=== PATIENT | female | born 1995 | race Caucasian/White ===

== ENCOUNTER 2016-04-13 00:39 | Emergency (ER) | payer OTHER, BC ==
[~2016-04-13] VITALS: Ht 162.6 cm; Wt 120.6 kg
[~2016-04-13 00:39] MED LIST: DIPH25CA65 PO; MULT-580 PO
[2016-04-13 00:40] VITALS: TEMP 37.1; Ht 162.6 cm; Wt 120.6 kg
[2016-04-13 01:28] VITALS: BP 124/88; PULSE 89; O2SAT 98
--- NOTE | 2016-04-13 01:38 | EMERGENCY ROOM VISIT NOTE ---
ED Visit Note First contact with patient: 00:46 CHIEF COMPLAINT: Body Fluid exposure HPI: This 20 yo presents to the Emergency Department for evaluation of a body fluid exposure left middle finger. Patient was stuck by a hypodermic insulin needle and giving insulin to the patient's in the arm. The wound has already been cleansed. Bleeding is controlled. They deny numbness, tingling, or loss of motion. Source patient is known. History of the source patient is not known at this time. Patient works at [employer] and this morning the source patient will be tested for HIV. They have had the hepatitis B. vaccination. They believe their tetanus is up-to-date. Pain is 0/10. Patient is also requesting a test. ALLERGIES: Lavender oil MEDICATIONS: None PMH: None SOCIAL HISTORY: No drug use Physical Exam: VITALS: Nursing notes reviewed and vitals are stable. GENERAL: Pleasant female, in no acute distress, well developed, well nourished. SKIN: Warm and dry with good turgor. no abrasions. There is a solitary puncture lisa present at the left middle finger. Bleeding is controlled. No edema. Capillary refill is 2+. MUSCULOSKELETAL: Patient has full active range of motion of the finger. Normal strength. NEURO: Gross sensation is intact across the finger. ED COURSE: I examined the patient. Option of HIV, hepatitis C, and hepatitis B testing was discussed with the patient. The risks, benefits, purpose, and limitations of the tests were explained to the patient and all of their questions were answered. They elected to proceed. I did perform pretest counseling and the appropriate consent forms were signed. Patient was given information on prevention of exposure and transmission as well as hospital confidentiality. Blood exposure handout was provided. The patient's blood was drawn. Risks and benefits of HIV prophylaxis were discussed with the patient. The patient elected to no HIV prophylaxis at this time. They will follow-up with their employee health. Wound care instructions were provided. The patient was discharged in stable condition. Impression: Body fluid exposure, request test Plan: As below Problem List Medical Problems: (1) History of treatment for tuberculosis Status: Chronic Allergies Coded Allergies: Lavender Oil (Verified Allergy, Unknown, cAUSES " A LUMP " IN THE BACK OF THROAT, 01/12/15) Vital Signs Date Time Temp Pulse Resp B/P Pulse Ox O2 Delivery O2 Flow Rate FiO2 04/13/16 01:28 89 18 124/88 98 04/13/16 00:40 37.1 81 18 118/77 97 Room Air Laboratory Results Test 04/13/16 00:54 04/13/16 01:15 Departure Information Impression Primary Impression: Needlestick injury of finger of left hand Additional Impression: test negative Dispostion Home / Self-Care Condition GOOD Referrals No Doctor, Assigned Forms WORK / SCHOOL INSTRUCTIONS, HOME CARE DOCUMENTATION FORM, IMPORTANT VISIT INFORMATION Patient Instructions Cool Other Sharps Precautions, On License Of [facility] Additional Instructions Antibiotic ointment and bandage to the areas until healed. Follow up with family doctor or return for any signs of infection (increasing redness, swelling , drainage, or fever). Keep covered when in sun until fully healed then SPF 50 or higher until scar healed. Follow up with your occupational health for further workup for your needlestick tonight. Problem Qualifiers
[2016-04-13 02:20] LABS: HEPATITIS B AB NEG
== END 2016-04-13 01:29 | disposition home or self-care (01) ==
LOC: C.EDB 00:40
DX: S60.943A Unspecified superficial injury of left middle finger, initial encounter (principal); W46.0XXA Contact with hypodermic needle, initial encounter; Y93.F9 Activity, other caregiving; Y99.0 Civilian activity done for income or pay; Y92.129 Unspecified place in nursing home as the place of occurrence of the external cause; Z77.21 Contact with and (suspected) exposure to potentially hazardous body fluids; Z32.02 Encounter for pregnancy test, result negative

== ENCOUNTER → 2016-12-28 | Outpatient (CLI) | payer BC | END | disposition home or self-care (01) | LOC: C.PAPS 09:19 | PROVIDERS: ATTEND Physician Assistant | DX: Z01.419 Encounter for gynecological examination (general) (routine) without abnormal findings (principal) ==

== ENCOUNTER → 2016-12-28 | Outpatient (CLI) | payer BC ==
[2016-12-31 02:22] LABS: CHLAMYDIA TRACH RNA*** NOT DETECTED (NOT DETECTED); GC (NEIS GONORRHOEAE)RNA** NOT DETECTED (NOT DETECTED)
== END | disposition home or self-care (01) ==
LOC: C.LABSPEC 17:32
PROVIDERS: ATTEND Physician Assistant
DX: Z01.419 Encounter for gynecological examination (general) (routine) without abnormal findings (principal)

== ENCOUNTER 2017-05-06 21:07 | Emergency (ER) | payer BC ==
[~2017-05-06] VITALS: Ht 162.6 cm; Wt 124.5 kg
[2017-05-06 21:10] VITALS: TEMP 36.5; Ht 162.6 cm; Wt 124.5 kg
[2017-05-06] MEDS ORDERED: IBUP-1050 PO (21:25)
[2017-05-06] MEDS ORDERED: ETON1IMP2 IM (21:25)
[2017-05-06] MEDS ORDERED: ONDANSETRON INJ 2 MG/ML 2 ML VIAL IV STA (21:41)
[2017-05-06] MEDS ORDERED: MoRPHine SULFATE 4 MG/ML 1 ML CARP\\VIAL IV STA (21:41)
[2017-05-06] MEDS ORDERED: SODIUM CHLORIDE 0.9% 1000ML 1,000 ML IV STA (21:41)
--- NOTE | 2017-05-06 21:42 | EMERGENCY ROOM VISIT NOTE ---
History Report prepared by Landen: Dillan Cleary Under the Supervision of: Dr. Chadd Mooney M.D. First contact with patient: 21:17 Chief Complaint: ABDOMINAL PAIN Stated Complaint: PAIN IN LOWER ABDOMEN, FEELS LIKE A HORRIBLE CYCLE Nursing Triage Summary: Pt reports lower abd pain, nausea that started 1 hr ago. Pt states, "I've had really bad periods and had pain like this, but I don't have my period now. I had it two weeks ago and two weeks before that." History of Present Illness The patient is a 21 year old female who presents to the Emergency Room with complaints of constant lower abdominal pain beginning today. The patient states that she has had bad periods before, but notes that her pain has never been this bad. She notes that she has a history of ovarian cysts, but has not had any previous flare ups. She reports that there is a chance that she is . She also complains of nausea but denies any vomiting, fever, melena, and pain with urination. The patient states that she took 800mg of Ibuprofen 45 minutes ago. She rates her pain as a 10/10. Pain is located on the right and left lower quadrant. No vaginal discharge. Source of History: patient Onset: today Position: abdomen Symptom Intensity: 10/10 Timing: constant Associated Symptoms: + nausea, No vomiting, No melena, No urinary symptoms ( pain with urination) Review of Systems See HPI for pertinent positives and negatives. A total of ten systems were reviewed and were otherwise negative. Past Medical & Surgical Medical Problems: (1) History of treatment for tuberculosis (2) Ovarian cyst Surgical Problems: (1) Hx of adenoidectomy (2) Hx of tonsillectomy Family History Diabetes mellitus FHx: heart disease Hypertension Seizures Social History Smoking Status: Never Smoker Alcohol Use: none Drug Use: none Marital Status: single Housing Status: lives with family Occupation Status: employed Current/Historical Medications Scheduled Doxycycline Hyclate (Doxycycline Hyclate), 100 MG OR BID Etonogestrel (Nexplanon), 1 DOSE IM [id number] Ondasetron Odt (Zofran Odt), 4 MG SL TID Scheduled PRN Ibuprofen (Advil), 200 MG PO Q6 PRN for Pain Ibuprofen Tab (Motrin), 800 MG PO Q8H PRN for Pain Allergies Coded Allergies: Lavender Oil (Verified Allergy, Unknown, cAUSES " A LUMP " IN THE BACK OF THROAT, 05/06/17) Physical Exam Vital Signs Date Time Temp Pulse Resp B/P (MAP) Pulse Ox O2 Delivery O2 Flow Rate FiO2 05/06/17 23:15 69 16 135/85 99 05/06/17 21:10 36.5 80 20 158/94 99 Room Air Physical Exam Physical Exam GENERAL: She is oriented to person, place, and time. She appears well- developed and well-nourished. She does not appear distressed. Obese. HENT: Exam performed. Head: Normocephalic and atraumatic. Right Ear: External ear normal. No mastoid tenderness. Left Ear: External ear normal. No mastoid tenderness. Mouth/Throat: The oropharynx is clear and moist. No trismus in the jaw. No dental abscesses or uvula swelling. No oropharyngeal exudate or tonsillar abscesses. EYES: Conjunctivae and EOM are normal. Pupils are equal, round, and reactive to light. Right eye exhibits no discharge. Left eye exhibits no discharge. No scleral icterus. NECK: Normal range of motion. Neck supple. No JVD present. No spinous process tenderness present. No carotid bruit present. No rigidity. No tracheal deviation and normal range of motion present. No Brudzinski's sign and no Kernig 's sign noted. CV: Normal rate, regular rhythm, normal heart sounds and intact distal pulses. There is no peripheral edema. Palpable radial pulses bue. PULM/CHEST: Effort normal and breath sounds normal. No respiratory distress. No stridor. She has no wheezes. She has no rales. Chest Wall: She exhibits no tenderness. ABD: The abdomen is soft. Bowel sounds are normal. She has no distension. No mass is present. Tenderness to palpation to the LUQ and LLQ. There is no rebound , no guarding, no Tellez's sign. Rovsig negative MUSC/SKEL: Normal range of motion. There is no peripheral edema, tenderness or deformity. LYMPH: No cervical adenopathy. NEURO: She is alert and oriented to person, place, and time. She has normal strength. No cranial nerve deficit or sensory deficit. Coordination and gait normal. GCS eye subscore is 4. GCS verbal subscore is 5. GCS motor subscore is 6. Cerebellar tests wnl. SKIN: Skin is warm and dry. She is not diaphoretic. PSYCH: She has a normal mood and affect. Her behavior is normal. Judgment and thought content normal. Medical Decision & Procedures ER Provider Diagnostic Interpretation: Radiology results as stated below per my review and radiologist interpretation: PELVIC COMPLETE NON OB FINDINGS: Uterus: Normal. Anteverted retroflexed. The uterus measures 7.1 x 4.5 x 4.7 cm. Endometrial stripe measures 7 mm in thickness. Endometrium normal-appearing. Cervix likely contains a nabothian cyst. Right adnexa: Right ovary normal. Right ovary measures 2.4 x 4.1 x 2.4 cm. Normal color Doppler flow and arterial and venous waveforms within the ovarian parenchyma. Left adnexa: Left ovary normal. Left ovary measures 3.7 x 2.0 x 2.3 cm. Normal color Doppler flow and arterial and venous waveforms within the ovarian parenchyma. Hypoechoic peripherally vascular structure in the left adnexa, separate from the left ovary noted. Other: Trace free fluid, likely physiologic. IMPRESSION: 1. Indeterminate hypoechoic structure in left adnexa separate from the left ovary. This could represent left hydrosalpinx among other potential etiologies such as, less likely, an ovarian etiology. If clinically indicated, this could be further evaluated with contrast-enhanced MR pelvis or CT. Alternatively, follow-up pelvic ultrasound could be obtained to ensure resolution. 2. No evidence of ovarian torsion. Electronically signed by: Scotty Tapia M.D. 05/06/2017 10:[address] ABDOMEN & PELVIS With Contrast: No hydronephrosis or nephrolithiasis. Normal appendix. No bowel obstruction or bowel thickening. There is an elongated hypodensity along the left uterus which may represent hydrosalpinx. No fluid collection, free air, or lymphadenopathy. Recommend SPANISH LECTURER consult. Also recommend follow-up US to see resolution. Radiologist: Christelle Mast M.D. Laboratory Results 05/06/17 21:27 Red Blood Count 4.69, Mean Corpuscular Volume 88.1, Mean Corpuscular Hemoglobin 30.7, Mean Corpuscular Hemoglobin Concent 34.9, Mean Platelet Volume 9.5, Neutrophils (%) (Auto) 49.7, Lymphocytes (%) (Auto) 35.7, Monocytes (%) (Auto) 12.9, Eosinophils (%) (Auto) 0.9, Basophils (%) (Auto) 0.3, Neutrophils # (Auto ) 5.29, Lymphocytes # (Auto) 3.81, Monocytes # (Auto) 1.38, Eosinophils # (Auto ) 0.10, Basophils # (Auto) 0.03 05/06/17 21:27 Test 05/06/17 21:20 05/06/17 21:27 Urine Color YELLOW Urine Appearance CLEAR (CLEAR) Urine pH 5.5 (4.5-7.5) Urine Specific Lewis 1.030 (1.000-1.030) Urine Protein NEG (NEG) Urine Glucose (UA) NEG (NEG) Urine Ketones NEG (NEG) Urine Occult Blood NEG (NEG) Urine Nitrite NEG (NEG) Urine Bilirubin NEG (NEG) Urine Urobilinogen NEG (NEG) Urine Leukocyte Esterase NEG (NEG) Urine Test NEG (NEG) White Blood Count 10.66 K/uL (4.8-10.8) Red Blood Count 4.69 M/uL (4.2-5.4) Hemoglobin 14.4 g/dL (12.0-16.0) Hematocrit 41.3 % (37-47) Mean Corpuscular Volume 88.1 fL (80-100) Mean Corpuscular Hemoglobin 30.7 pg (25-34) Mean Corpuscular Hemoglobin Concent 34.9 g/dl (32-36) Platelet Count 286 K/uL (130-400) Mean Platelet Volume 9.5 fL (7.4-10.4) Neutrophils (%) (Auto) 49.7 % Lymphocytes (%) (Auto) 35.7 % Monocytes (%) (Auto) 12.9 % Eosinophils (%) (Auto) 0.9 % Basophils (%) (Auto) 0.3 % Neutrophils # (Auto) 5.29 K/uL (1.4-6.5) Lymphocytes # (Auto) 3.81 K/uL (1.2-3.4) Monocytes # (Auto) 1.38 K/uL (0.11-0.59) Eosinophils # (Auto) 0.10 K/uL (0-0.5) Basophils # (Auto) 0.03 K/uL (0-0.2) RDW Standard Deviation 39.1 fL (36.4-46.3) RDW Coefficient of Variation 12.2 % (11.5-14.5) Immature Granulocyte % (Auto) 0.5 % Immature Granulocyte # (Auto) 0.05 K/uL (0.00-0.02) Anion Gap 6.0 mmol/L (3-11) Est Creatinine Clear Calc Drug Dose 117.7 ml/min Estimated GFR () 95.4 Estimated GFR (Non- 82.3 BUN/Creatinine Ratio 19.3 (10-20) Calcium Level 9.3 mg/dl (8.5-10.1) Laboratory results reviewed by me Medications Administered Medications (Trade) Dose Ordered Sig/Hortensia Route Start Time Stop Time Status Last Admin Dose Admin Sodium Chloride 1,000 ml @ 999 mls/hr Q1H1M STAT IV 05/06/17 21:41 05/06/17 22:41 DC 05/06/17 21:49 999 MLS/HR Morphine Sulfate (MoRPHine SULFATE INJ) 4 mg NOW STAT IV 05/06/17 21:41 05/06/17 21:43 DC 05/06/17 21:49 4 MG Ondansetron HCl (Zofran Inj) 4 mg NOW STAT IV 05/06/17 21:41 05/06/17 21:43 DC 05/06/17 21:48 4 MG Ceftriaxone Sodium (Rocephin Im) 250 mg NOW STAT IM 05/07/17 00:21 05/07/17 00:23 DC 05/07/17 00:30 250 MG Doxycycline Hyclate (Vibramycin Cap) 100 mg ONE ONCE PO 05/07/17 00:30 05/07/17 00:31 DC 05/07/17 00:30 100 MG Ondansetron HCl (Zofran Odt) 4 mg ONE ONCE PO 05/07/17 00:30 05/07/17 00:31 DC 05/07/17 00:30 4 MG ED Course 2138: The patient was evaluated in room A12. A complete history and physical exam was performed. 2140: Zofran Inj 4mg IV, Morphine Sulfate 4mg IV, Sodium Chloride 1000 ml @ 999 mls/hr IV 2314: Labs and urine within normal limits. I reevaluated and updated the patient. Her vital signs were stable. Indeterminate hypoechoic structure in left adnexa separate from the left ovary. This could represent left hydrosalpinx among other potential etiologies such as, less likely, an ovarian etiology. If clinically indicated, this could be further evaluated with contrast -enhanced MR pelvis or CT. Alternatively, follow-up pelvic ultrasound could be obtained to ensure resolution. Repeat abdominal exam shows that the patient still has pain with palpation of the LLQ and suprapubic area. Will obtain CT. 0012: A pelvic exam was conducted on the patient. There was yellowish clear vaginal discharge and adnexal tenderness. CT shows possible left hydrosalpinx. DRAIN CLEANER paged. 0014: I [facility] Rooney [facility] Discussed the patient's case. He states that the patient can follow up outpatient on Monday. He notes that the patient can be treated with Rocephin 250mg IM and doxycycline 100mg PO PID for 14 days. 0021: Rocephin Im 250mg IM 0030: Zofran Odt 4mg PO, Doxycycline Hyclate 100mg PO 0032: I reevaluated and updated the patient. She is comfortable following up with her SPANISH LECTURER on Monday. Prescription for doxycycline given. Zofran and analgesic prescription also given. DISCHARGE - Plan of care discussed with patient and questions answered. The patient was given both verbal and printed discharge instructions. The patient verbalized understanding and ability to comply. The patient is to seek outpatient follow up as noted in the discharge instructions. The patient verbalized understanding and ability to comply. The patient is discharged in stable condition. The patient was instructed to return for worsening symptoms. Medical Decision 2314: Labs and urine within normal limits. I reevaluated and updated the patient. Her vital signs were stable. Indeterminate hypoechoic structure in left adnexa separate from the left ovary. This could represent left hydrosalpinx among other potential etiologies such as, less likely, an ovarian etiology. If clinically indicated, this could be further evaluated with contrast -enhanced MR pelvis or CT. Alternatively, follow-up pelvic ultrasound could be obtained to ensure resolution. Repeat abdominal exam shows that the patient still has pain with palpation of the LLQ and suprapubic area. Will obtain CT. 0012: A pelvic exam was conducted on the patient. There was yellowish clear vaginal discharge and adnexal tenderness. CT shows possible left hydrosalpinx, normal appendix. DRAIN CLEANER paged. 0014: I spoke to Dr. Rooney - DRAIN CLEANER, [facility]. Discussed the patient's case. He states that the patient can follow up outpatient on Monday. He notes that the patient can be treated with Rocephin 250mg IM and doxycycline 100mg PO PID for 14 days. 0021: Rocephin Im 250mg IM 0030: Zofran Odt 4mg PO, Doxycycline Hyclate 100mg PO 0032: I reevaluated and updated the patient. She is comfortable following up with her SPANISH LECTURER on Monday. Prescription for doxycycline given. Zofran and analgesic prescription also given. DISCHARGE - Plan of care discussed with patient and questions answered. The patient was given both verbal and printed discharge instructions. The patient verbalized understanding and ability to comply. The patient is to seek outpatient follow up as noted in the discharge instructions. The patient verbalized understanding and ability to comply. The patient is discharged in stable condition. The patient was instructed to return for worsening symptoms. Head Trauma GCS Score: 15 Medication Reconcilliation Current Medication List: was personally reviewed by me Blood Pressure Screening Patient's blood pressure: Elevated blood pressure Blood pressure disposition: Elevated BP felt to be situational Consults Time Called: 8 Consulting Physician: Dr. Rooney - DRAIN CLEANER[place] [facility] [place] Call: 0014 Discussed the patient's case. He states that the patient can follow up outpatient on Monday. He notes that the patient can be treated with Rocephin 250mg IM and doxycycline 100mg PO PID for 14 days. Impression Primary Impression: Hydrosalpinx Scribe Attestation The scribe's documentation has been prepared under my direction and personally reviewed by me in its entirety. I confirm that the note above accurately reflects all work, treatment, procedures, and medical decision making performed by me. The chart was completed utilizing [employer] Speech voice recognition software. Grammatical errors, random word insertions, pronoun errors, and incomplete sentences are an occasional consequence of this system due to software limitations, ambient noise, and hardware issues. Any formal questions or concerns about the content, text, or information contained within the body of this dictation should be directly addressed to the physician for clarification. Departure Information Dispostion Home / Self-Care Prescriptions Ibuprofen Tab (MOTRIN) 800 Mg Tab 800 MG PO Q8H Y for Pain for 10 Days, #30 TAB Prov: Chadd Mooney M.D. 05/07/17 Ondasetron Odt (ZOFRAN ODT) 4 Mg Tab 4 MG SL TID for Nausea, #30 TAB Prov: Chadd Mooney M.D. 05/07/17 Doxycycline Hyclate (Doxycycline Hyclate) 100 Mg Cap 100 MG OR BID for 14 Days, #28 TABS Prov: Chadd Mooney M.D. 05/07/17 Referrals No Doctor, Assigned (PCP) Forms HOME CARE DOCUMENTATION FORM, IMPORTANT VISIT INFORMATION Patient Instructions My [facility] Additional Instructions Do not engage in sexual intercourse for next 2 weeks. Take antibiotics as prescribed. Take Motrin 800 mg as needed for pain. Return to the emergency department if you develop fever greater than 100.4, continued vomiting, worsening of abdominal pain, vaginal discharge.
[2017-05-06 22:00] LABS: CALCIUM 9.3 mg/dl (8.5-10.1); CREATININE 0.97 mg/dl (0.60-1.20); POTASSIUM 4.1 mmol/L (3.5-5.1)
[2017-05-06 22:18] LABS: BASO % 0.3 %; BASO ABS # 0.03 K/uL (0-0.2); EOS % 0.9 %; HEMATOCRIT 41.3 % (37-47); HEMOGLOBIN 14.4 g/dL (12.0-16.0); IG# 0.05 K/uL (0.00-0.02); LYMPH % 35.7 %; LYMPH ABS # 3.81 K/uL (1.2-3.4); MEAN CELL VOLUME 88.1 fL (80-100); MEAN CORPUSCULAR HEMOGLOBIN 30.7 pg (25-34); MEAN CORPUSCULAR HGB CONC 34.9 g/dl (32-36); MEAN PLATELET VOLUME 9.5 fL (7.4-10.4); MONO % 12.9 %; MONO ABS # 1.38 K/uL (0.11-0.59); NEUT % 49.7 %; NEUT ABS # 5.29 K/uL (1.4-6.5); PLATELET COUNT 286 K/uL (130-400); RED CELL DISTRIBUTION WIDTH CV 12.2 % (11.5-14.5); RED CELL DISTRIBUTION WIDTH SD 39.1 fL (36.4-46.3); WHITE BLOOD COUNT 10.66 K/uL (4.8-10.8)
--- NOTE | 2017-05-06 23:01 | DIAGNOSTIC IMAGING REPORT ---
PELVIC COMPLETE NON OB CLINICAL HISTORY: 21 years-old Female presenting with r/o ovarian torsion vs ovarian cyst, G0, P0, last menstrual period 04/08/2017, no abnormal bleeding or prior surgery, severe pelvic pain, 10 out of 10. TECHNIQUE: Real-time grayscale and color and spectral Doppler ultrasound imaging of the pelvis was performed first using a transabdominal probe and subsequently transvaginal for better characterization. COMPARISON: None. FINDINGS: Uterus: Normal. Anteverted retroflexed. The uterus measures 7.1 x 4.5 x 4.7 cm. Endometrial stripe measures 7 mm in thickness. Endometrium normal-appearing. Cervix likely contains a nabothian cyst. Right adnexa: Right ovary normal. Right ovary measures 2.4 x 4.1 x 2.4 cm. Normal color Doppler flow and arterial and venous waveforms within the ovarian parenchyma. Left adnexa: Left ovary normal. Left ovary measures 3.7 x 2.0 x 2.3 cm. Normal color Doppler flow and arterial and venous waveforms within the ovarian parenchyma. Hypoechoic peripherally vascular structure in the left adnexa, separate from the left ovary noted. Other: Trace free fluid, likely physiologic. IMPRESSION: 1. Indeterminate hypoechoic structure in left adnexa separate from the left ovary. This could represent left hydrosalpinx among other potential etiologies such as, less likely, an ovarian etiology. If clinically indicated, this could be further evaluated with contrast-enhanced MR pelvis or CT. Alternatively, follow-up pelvic ultrasound could be obtained to ensure resolution. 2. No evidence of ovarian torsion. Electronically signed by: Scotty Tapia M.D. 05/06/2017 10:59 PM Dictated Date/Time: 05/06/2017 10:55 PM
[2017-05-06] MEDS ORDERED: OPTIRAY 320 IV PRN (23:30)
[2017-05-07] MEDS ORDERED: CEFTRIAXONE SOD 350MG/ML 1 GM VIAL IM STA (00:21)
[2017-05-07] MEDS ORDERED: ONDANSETRON 4MG OD TAB PO ONE (00:30)
[2017-05-07] MEDS ORDERED: DOXYCYCLINE HYCLATE 100 MG CAP PO ONE (00:30)
[2017-05-07] MEDS ORDERED: DXY100 OR (00:31)
[2017-05-07] MEDS ORDERED: ONDA4TAB10 SL (00:31)
[2017-05-07] MEDS ORDERED: IBUP-1451 PO (00:32)
[2017-05-07 00:52] VITALS: BP 125/93; PULSE 72; O2SAT 99
--- NOTE | 2017-05-07 07:05 | DIAGNOSTIC IMAGING REPORT ---
CT SCAN OF THE ABDOMEN AND PELVIS WITH IV CONTRAST CLINICAL HISTORY: Left lower quadrant abdominal pain. COMPARISON STUDY: Pelvic ultrasound dated 05/06/2017. TECHNIQUE: Following the IV administration of 94 cc of Optiray 320, CT scan of the abdomen and pelvis is performed from the lung bases to the proximal femora. Images are reviewed in the axial, sagittal, and coronal planes. IV contrast was administered without complication. A dose lowering technique was utilized adhering to the principles of ALARA. CT DOSE: 1563.64 mGy.cm FINDINGS: Lung bases: The heart is normal in size and without pericardial effusion. The lung bases are clear. Liver: The contrast-enhanced liver is normal in size, contour, and attenuation. Focal fatty infiltration is seen adjacent to falciform ligament. There is no intrahepatic biliary ductal dilatation. The hepatic veins and portal veins are patent. Gallbladder: Unremarkable. Spleen: Normal in size and attenuation. Pancreas: Unremarkable. Adrenal glands: Unremarkable. Kidneys: The contrast enhanced kidneys are normal in size and without hydronephrosis. The kidneys enhance symmetrically. Abdominal vasculature: The abdominal aorta is normal in course and caliber. Bowel: The small bowel and colon are normal in course and caliber. The appendix is well-visualized and normal. Peritoneum: There is no intraperitoneal free air or abdominal ascites. Lymphadenopathy: None. Pelvic viscera: The bladder and uterus are normal as visualized. There are small ovarian follicles. Trace free fluid is seen in the cul-de-sac. There is a questionable low-attenuation structure along the left aspect of the uterus. This was better characterized by ultrasound. Skeletal structures: No lytic or blastic lesions are seen. IMPRESSION: 1. There are no acute infectious or inflammatory findings identified in the abdomen. 2. There is a small volume of free fluid in the cul-de-sac, likely within physiologic limits. 3. There is a questionable low-attenuation structure along the left aspect of the uterus. This is of indeterminant significance. Mild hydrosalpinx is not excluded. Gynecologic follow-up is recommended, as is follow-up ultrasound in 2-3 menstrual cycles. Electronically signed by: Sixto Bravo M.D. 05/07/2017 7:03 AM Dictated Date/Time: 05/07/2017 6:57 AM
--- NOTE | 2017-05-10 16:45 | Pharmacy Progress Note ---
ED Pharmacist Culture FollowUp Date of Service: May 10, 2017. Patient had follow up appointment with [facility] Monday. I called the nurse and faxed the genital culture/ Chlamydia/gonorrhea results to the confirmed number of [phone]. I also confirmed with nurse Astird that they did receive the fax. The nurse stated the provider who saw her Monday would assess and they would call me back with any changes to current treatment plan.
== END 2017-05-07 00:55 | disposition home or self-care (01) ==
LOC: C.EDB 21:08 → C.EDA 05-07 00:55
DX: N70.11 Chronic salpingitis (principal); Z83.3 Family history of diabetes mellitus; Z82.49 Family history of ischemic heart disease and other diseases of the circulatory system; Z82.0 Family history of epilepsy and other diseases of the nervous system; Z91.048 Other nonmedicinal substance allergy status

== ENCOUNTER → 2017-06-29 | Outpatient (CLI) | payer BC ==
[~2017-06-29] MED LIST changes: -DIPH25CA65 PO; +DXY100 OR; +ETON1IMP2 IM; +IBUP-1050 PO; -MULT-580 PO; +ONDA4TAB10 SL
== END | disposition home or self-care (01) ==
LOC: C.LABSPEC 15:58
PROVIDERS: ATTEND Physician Assistant
DX: A59.01 Trichomonal vulvovaginitis (principal)

== ENCOUNTER → 2017-10-10 | Outpatient (CLI) | payer OTHER, BC ==
--- NOTE | 2017-10-10 11:58 | DIAGNOSTIC IMAGING REPORT ---
R ANKLE MIN 3 VIEWS ROUTINE CLINICAL HISTORY: RT ANKLE INJURY trauma. Pain. COMPARISON: None. DISCUSSION: Tiny avulsion tip medial malleolus. Tiny avulsion lateral margin of the talus. Considerable lateral soft tissue edematous change. Minimal degenerative irregularity lateral aspect tibial plateau possibly secondary to an underlying subchondral defect. This is a nonacute finding. IMPRESSION: 1. Tiny avulsion tip medial malleolus and lateral margin of the talus. 2. Considerable localized soft tissue edema. 3. Probable small subchondral defect lateral talar dome. The above report was generated using voice recognition software. It may contain grammatical, syntax or spelling errors. Electronically signed by: Keven Crum M.D. 10/10/2017 11:56 AM Dictated Date/Time: 10/10/2017 11:55 AM
== END | disposition home or self-care (01) ==
LOC: C.RAD1850 11:42
PROVIDERS: ATTEND Nurse Practitioner Family
DX: S99.911A Unspecified injury of right ankle, initial encounter (principal); R60.0 Localized edema; X58.XXXA Exposure to other specified factors, initial encounter